=== PATIENT | female | born 1970 | race Caucasian/White ===

== ENCOUNTER → 2021-06-17 07:03 | Outpatient (CLI) | payer OTHER, SELFPAY ==
--- NOTE | 2021-06-17 07:45 | MRI_ITS ---
STUDY: MRI LUMBAR SPINE WITHOUT CONTRAST REASON FOR EXAM: Female, 50 years old. LUMBAR RADICULOPATHY TECHNIQUE: Standardized fat and water weighted pulse sequences were obtained in the sagittal and axial planes. COMPARISON: None FINDINGS: Normal lumbar lordosis. There is a levoscoliosis of the lumbar spine. Normal conus medullaris that terminates at the L1. L1-2: Loss of intervertebral disc height. There is endplate spondylosis of the vertebral body. Normal central canal and intervertebral neuroforamina. There is bilateral facet arthropathy. L2-3: Loss of intervertebral disc height. There is endplate spondylosis of the vertebral body. Normal central canal and intervertebral neuroforamina. There is bilateral facet arthropathy. L3-4: Loss of intervertebral disc height. There is endplate spondylosis of the vertebral body. Normal central canal and intervertebral neuroforamina. There is bilateral facet arthropathy. L4-5: Loss of intervertebral disc height. There is endplate spondylosis of the vertebral body. No significant narrowing of the intervertebral neuroforamina. There is bilateral facet arthropathy. Disc desiccation. No spinal stenosis. There is bilateral ligamentum flavum thickening. L5-S1: Loss of intervertebral disc height. There is endplate spondylosis of the vertebral body. No significant narrowing of the intervertebral neuroforamina. There is bilateral facet arthropathy. Disc desiccation. Central disc herniation. No spinal stenosis. There is bilateral ligamentum flavum thickening. Normal visualized paraspinous soft tissue structures. IMPRESSION: (NOT LISTED IN ORDER OF SIGNIFICANCE) Minimal central disc herniation at L5-S1 with no spinal stenosis. No cord compression. No neural foraminal stenosis. Electronically Signed: Quentin Tan MD at 9:58 EDT , Service support , MRI/Spine Lumbar (Routine)
== END ==
LOC: MRI 07:09
PROVIDERS: PCP Physician Assistant Medical; Referring Provider Anesthesiology Pain Medicine; Visit Provider Anesthesiology Pain Medicine
DX: M54.16 Radiculopathy, lumbar region (principal)
CPT/HCPCS: 72148